=== PATIENT | female | born 1935 | race Caucasian/White ===

== ENCOUNTER → 2020-05-11 | Outpatient (CLI) | payer MEDICARE, OTHER ==
--- NOTE | 2020-05-11 16:44 | KCIC ---
MRI Brain without contrast History: Cerebellar infarct, dizziness for 6 months Technique: Multiplanar, multisequential noncontrast MR imaging was performed of the brain. Comparison: None Findings: There is some motion degradation. There is no evidence of recent infarct or cytotoxic edema. Ventricular size is proportionate to the sulcal spaces, mild generalized supratentorial atrophy.There is no significant midline shift, intraaxial mass effect, or focal abnormal extra-axial fluid collection. There is scattered overall mild T2 and FLAIR hyperintense abnormality of the supratentorial parenchyma bilaterally. 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 There is preservation of the major intracranial flow-voids at the skull base. The cerebellar tonsils are normal in location. There is no significant abnormality of the pineal gland or pituitary gland. There is right maxillary sinus mucous retention cyst about 1.4 cm. There is very mild patchy ethmoid air cell and right frontal sinus mucosal thickening. There has been lens surgery bilaterally. The mastoid air cells are aerated. There is preserved marrow signal of the clivus. 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 Impression: 1. There is no evidence of recent infarct or intracranial mass effect. There is mild generalized supratentorial atrophy. Mild T2 and FLAIR hyperintense signal abnormality of the supratentorial parenchyma is more commonly due to chronic microvascular ischemic disease in a patient this age. There are old lacunar infarcts as stated. 2. 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 Electronically signed by: Rodri Kathleen MD (05/11/2020 4:41 PM) [facility]
== END ==
LOC: KCIC MRI 15:27
PROVIDERS: ATTEND Internal Medicine
DX: I63.81 Other cerebral infarction due to occlusion or stenosis of small artery (principal); G31.9 Degenerative disease of nervous system, unspecified
CPT/HCPCS: 70551